=== PATIENT | female | born 1975 | race Two or more races ===

== ENCOUNTER 2023-12-30 21:47 | Inpatient (IN) | payer MEDICARE, OTHER ==
[~2023-12-30] VITALS: Ht 162.6 cm; Wt 157.5 kg
[2023-12-31 00:35] VITALS: BP 127/69; TEMP 97.5; O2SAT 98
[2023-12-31] MEDS ORDERED: LORAZEPAM INJ 2 MG/ML VIAL IV PRN (03:30)
[2023-12-31] MEDS: IV NS 0.9% 1,000 ML BAG IV PRN (05:40)
[2023-12-31] MEDS ORDERED: DIPH25TA25 PO (08:31)
[2023-12-31] MEDS ORDERED: MULT-1094 PO (08:31)
[2023-12-31] MEDS ORDERED: BENZ1TAB7 PO (08:31)
[2023-12-31] MEDS ORDERED: CLON0.5T4 PO (08:31)
[2023-12-31] MEDS ORDERED: VIT1CAPS44 PO (08:31)
[2023-12-31] MEDS ORDERED: HALO10TA13 PO (08:31)
[2023-12-31] MEDS ORDERED: HALO5TAB PO (08:31)
[2023-12-31] MEDS ORDERED: CALC-953 PO (08:31)
[2023-12-31] MEDS ORDERED: BUPR-54 PO (08:31)
[2023-12-31] MEDS ORDERED: LEVO50TA PO (08:31)
[2023-12-31] MEDS ORDERED: CHOL100043 PO (08:31)
[2023-12-31] MEDS ORDERED: SIME80TA15 PO (08:31)
[2023-12-31] MEDS ORDERED: TIMO5DRO35 EACHEYE (08:31)
[2023-12-31] MEDS ORDERED: PANT40TA2 PO (08:31)
[2023-12-31] MEDS ORDERED: PYRI25TA4 PO (08:31)
[2023-12-31] MEDS ORDERED: ASCO-340 PO (08:31)
[2023-12-31] MEDS ORDERED: IBUP-1957 PO (08:31)
[2023-12-31] MEDS ORDERED: LACT30003 PO (08:31)
[2023-12-31] MEDS ORDERED: [UNRECOGNIZED DRUG - OTHER] PO (08:31)
[2023-12-31] MEDS ORDERED: LATA7.5D EACHEYE (08:31)
[2023-12-31] MEDS ORDERED: OXYC-133 PO (08:32)
[2023-12-31] MEDS ORDERED: POLY17PO4 PO (08:32)
[2023-12-31] MEDS: SODIUM CHLORIDE 1000 MG TABLET PO SCH ×2 (08:34→16:30)
[2023-12-31 09:53] LABS: CREATININE 0.7 mg/dL (0.6-1.3); MAGNESIUM 2.4 mg/dL (1.8-2.4); PHOSPHORUS 3.9 mg/dL (2.5-4.9); POTASSIUM 4.3 mmol/L (3.5-5.1)
[2023-12-31 10:10] VITALS: BP 141/66; TEMP 98.1; O2SAT 96
[2023-12-31] MEDS: HYDROCODONE/APAP 10/325MG TABLET PO PRN (15:17)
[2023-12-31 16:00] VITALS: BP 133/68; TEMP 97.3; O2SAT 95
[2023-12-31 19:19] LABS: BASOPHILS # (AUTO) 0.1 K/uL (0.0-0.2); BASOPHILS % (AUTO) 0.8 % (0.0-2.0); EOSINOPHILS # (AUTO) 2.2 K/uL (0.0-0.7); EOSINOPHILS % (AUTO) 20.5 % (0.0-6.0); HEMATOCRIT 35 % (33-45); HEMOGLOBIN 11.7 g/dL (11.5-14.8); LYMPHOCYTES # (AUTO) 0.6 K/uL (0.8-4.8); LYMPHOCYTES % (AUTO) 5.8 % (20.0-44.0); MEAN CORPUSCULAR HEMOGLOBIN 31 PG (26.0-33.0); MEAN CORPUSCULAR HGB CONC 34 g/dl (31.0-36.0); MEAN CORPUSCULAR VOLUME 92 fL (82-100); MONOCYTES # (AUTO) 0.1 K/uL (0.1-1.30); MONOCYTES % (AUTO) 1.1 % (2.0-12.0); NEUTROPHILS # (AUTO) 7.6 K/uL (1.8-8.9); NEUTROPHILS % (AUTO) 71.8 % (43.0-81.0); PLATELET COUNT (AUTO) 273 K/uL (150-450); RED BLOOD CELL COUNT(AUTO) 3.75 MIL/uL (4.0-5.2); RED CELL DISTRIBUTION WIDTH 13.7 % (11.5-15.0); WHITE BLOOD COUNT (AUTO) 10.6 K/uL (4.3-11.0)
[2023-12-31 19:38] LABS: IRON, SERUM 29 ug/dl (50-175); TOTAL IRON BINDING CAPACITY 261 ug/dl (250-450)
[2023-12-31 19:46] LABS: PREGNANCY TEST URINE QUAL NEGATIVE (NEGATIVE)
[2023-12-31 20:00] VITALS: BP 113/67; TEMP 98.2; O2SAT 98
[2023-12-31 20:54] LABS: ANISOCYTOSIS 1+; BAND % (MANUAL) 2 % (0.0-5.0); EOSINOPHILS % (MANUAL) 2 % (0-4); LYMPHOCYTES % (MANUAL) 32 % (16-48); MONOCYTES % (MANUAL) 7 % (0-11.0); NEUTROPHILS % (MANUAL) 57 (42-76); PLATELET ESTIMATE ADEQUATE
[2023-12-31] MEDS ORDERED: MAG HYDROX/AL HYDROX/SIMETH 30 ML UDC PO PRN (21:30)
[2023-12-31] MEDS ORDERED: MAGNESIUM HYDROXIDE 30 ML UDC PO PRN (21:30)
[2023-12-31] MEDS ORDERED: POLYETHYLENE GLYCOL 3350 17 GM POWD.PACK PO PRN (21:30)
[2023-12-31] MEDS ORDERED: ZOLPIDEM TARTRATE 5 MG TABLET PO PRN (21:30)
[2023-12-31] MEDS ORDERED: ONDANSETRON HCL/PF 4 MG/2 ML VIAL IVP PRN (21:30)
[2023-12-31] MEDS ORDERED: ACETAMINOPHEN 325 MG TABLET PO PRN (21:30)
[2023-12-31 22:03] VITALS: BP 113/67; TEMP 98.2; O2SAT 98
[2023-12-31] MEDS: BUPROPION XL 150 MG TAB.ER.24 PO SCH (22:10)
[2023-12-31] MEDS: clonazePAM 0.5 MG TABLET PO SCH (22:10)
[2023-12-31] MEDS: diphenhydrAMINE HCL 50 MG CAPSULE PO SCH (23:57)
[2023-12-31] MEDS: HALOPERIDOL 5 MG TABLET PO SCH (23:57)
[2024-01-01] VITALS (7 sets, daily range): BP systolic 104–123; BP diastolic 53–94; TEMP 97.5–98.4; O2SAT 94–100
[2024-01-01 07:51] LABS: BASOPHILS # (AUTO) 0.1 K/uL (0.0-0.2); BASOPHILS % (AUTO) 1.1 % (0.0-2.0); EOSINOPHILS # (AUTO) 0.2 K/uL (0.0-0.7); EOSINOPHILS % (AUTO) 2.6 % (0.0-6.0); HEMATOCRIT 35 % (33-45); HEMOGLOBIN 11.7 g/dL (11.5-14.8); LYMPHOCYTES % (AUTO) 21.7 % (20.0-44.0); MEAN CORPUSCULAR HEMOGLOBIN 32 PG (26.0-33.0); MEAN CORPUSCULAR HGB CONC 34 g/dl (31.0-36.0); MEAN CORPUSCULAR VOLUME 96 fL (82-100); MONOCYTES % (AUTO) 10.6 % (2.0-12.0); NEUTROPHILS # (AUTO) 5.8 K/uL (1.8-8.9); PLATELET COUNT (AUTO) 281 K/uL (150-450); RED BLOOD CELL COUNT(AUTO) 3.62 MIL/uL (4.0-5.2); RED CELL DISTRIBUTION WIDTH 13.8 % (11.5-15.0); WHITE BLOOD COUNT (AUTO) 9.1 K/uL (4.3-11.0)
[2024-01-01] MEDS: ASCORBIC ACID 500 MG TABLET PO SCH (08:25)
[2024-01-01] MEDS: LEVOTHYROXINE SODIUM 50 MCG TABLET PO SCH (08:25)
[2024-01-01] MEDS: PYRIDOXINE HCL 50 MG TABLET PO SCH (08:25)
[2024-01-01] MEDS: BENZTROPINE MESYLATE (1 MG) 1 MG TABLET PO SCH (08:26)
[2024-01-01] MEDS: PANTOPRAZOLE 40 MG TABLET.DR PO SCH (08:26)
[2024-01-01] MEDS: CALCIUM CARB 600MG /VIT D 1 EACH TABLET PO SCH (08:26)
[2024-01-01] MEDS: SIMETHICONE 80 MG TAB.CHEW PO SCH (08:26)
[2024-01-01] MEDS: MULTIVITAMINS,THERAGRAN 1 UDTAB TABLET PO SCH (08:26)
[2024-01-01] MEDS: TIMOLOL 0.5% SOLN OPHTH 5 ML BOTTLE EACHEYE SCH (08:27)
[2024-01-01] MEDS: LATANOPROST EYE DROP 0.005% 2.5 ML BOTTLE EACHEYE SCH (08:28)
[2024-01-01] MEDS: CHOLECALCIFEROL 1,000 UNIT TABLET (VIT D3) PO SCH (08:28)
[2024-01-01] MEDS: Z GUARD REMEDY 4 OZ OINT TP PRN (08:29)
[2024-01-01 08:30] LABS: CALCIUM, SERUM 9.1 mg/dL (8.5-10.1); CREATININE 0.6 mg/dL (0.6-1.3); MAGNESIUM 2.2 mg/dL (1.8-2.4); PHOSPHORUS 5.7 mg/dL (2.5-4.9); POTASSIUM 4.5 mmol/L (3.5-5.1)
[2024-01-01] MEDS ORDERED: Medication Not On Formulary EA (Vit C/E/Zn/Coppr/Lutein/Zeaxan (Preservision Areds 2 Sof PO SCH (09:00)
[2024-01-01] MEDS ORDERED: LACTASE 9000 UNIT PO SCH (09:00)
[2024-01-01] MEDS: GUAIFENESIN/D-METHORPHAN HB 5 ML UDC PO PRN (13:49)
[2024-01-02] VITALS: BP 134/63; TEMP 98.2; O2SAT 96
[2024-01-02 07:00] VITALS: BP 123/74; TEMP 97.5; O2SAT 99
[2024-01-02 12:00] VITALS: BP 121/77; TEMP 97.7; O2SAT 99
[2024-01-02] MEDS: HYDROCODONE/APAP 5/325MG TABLET PO PRN (12:59)
[2024-01-02 16:00] VITALS: BP 126/59; TEMP 97.6; O2SAT 96
[2024-01-02 22:17] VITALS: BP 127/55; TEMP 98.8; O2SAT 96
[2024-01-03 01:59] VITALS: BP 114/57; TEMP 98.8; O2SAT 95
[2024-01-03 04:11] VITALS: BP 151/78; TEMP 97.7; O2SAT 95
[2024-01-03 08:00] VITALS: BP 148/88; TEMP 98.3; O2SAT 98
[2024-01-03] MEDS: SODIUM CHLORIDE 1000 MG TABLET PO SCH (09:13)
[2024-01-03 09:37] LABS: BASOPHILS # (AUTO) 0.5 K/uL (0.0-0.2); EOSINOPHILS # (AUTO) 0.4 K/uL (0.0-0.7); EOSINOPHILS % (AUTO) 4.5 % (0.0-6.0); HEMATOCRIT 39 % (33-45); HEMOGLOBIN 13.1 g/dL (11.5-14.8); LYMPHOCYTES # (AUTO) 1.8 K/uL (0.8-4.8); LYMPHOCYTES % (AUTO) 21.6 % (20.0-44.0); MEAN CORPUSCULAR HEMOGLOBIN 33 PG (26.0-33.0); MEAN CORPUSCULAR HGB CONC 34 g/dl (31.0-36.0); MEAN CORPUSCULAR VOLUME 96 fL (82-100); MONOCYTES # (AUTO) 0.5 K/uL (0.1-1.30); MONOCYTES % (AUTO) 5.6 % (2.0-12.0); NEUTROPHILS # (AUTO) 5.2 K/uL (1.8-8.9); NEUTROPHILS % (AUTO) 62.1 % (43.0-81.0); PLATELET COUNT (AUTO) 410 K/uL (150-450); RED BLOOD CELL COUNT(AUTO) 4.01 MIL/uL (4.0-5.2); RED CELL DISTRIBUTION WIDTH 13.9 % (11.5-15.0); WHITE BLOOD COUNT (AUTO) 8.4 K/uL (4.3-11.0)
[2024-01-03 09:39] LABS: BASOPHILS % (AUTO) 6.2 % (0.0-2.0)
[2024-01-03 10:10] LABS: CALCIUM, SERUM 9.2 mg/dL (8.5-10.1); CREATININE 0.7 mg/dL (0.6-1.3); MAGNESIUM 2.2 mg/dL (1.8-2.4); PHOSPHORUS 3.9 mg/dL (2.5-4.9); POTASSIUM 4.5 mmol/L (3.5-5.1)
[2024-01-03 18:00] VITALS: TEMP 98.3
[2024-01-03 20:00] VITALS: BP 133/74; TEMP 98.2; O2SAT 93; O2SAT 95
[2024-01-03 23:16] VITALS: O2SAT 99
[2024-01-04] VITALS: BP 116/75; TEMP 98.1; O2SAT 96
[2024-01-04 04:00] VITALS: BP 126/78; TEMP 98.2; O2SAT 93
[2024-01-04 08:00] VITALS: BP 150/92; TEMP 97.8; O2SAT 92
== END 2024-01-04 15:00 | DRG 193 ==
LOC: TELE 12-31 00:41
PROVIDERS: ADMIT Internal Medicine; ATTEND Internal Medicine
DX: J18.1 Lobar pneumonia, unspecified organism (principal); G93.41 Metabolic encephalopathy; E22.2 Syndrome of inappropriate secretion of antidiuretic hormone; Z68.43 Body mass index [BMI] 50.0-59.9, adult; H40.9 Unspecified glaucoma; K21.9 Gastro-esophageal reflux disease without esophagitis; F25.9 Schizoaffective disorder, unspecified; D50.9 Iron deficiency anemia, unspecified; F60.3 Borderline personality disorder; G89.29 Other chronic pain; E66.01 Morbid (severe) obesity due to excess calories; E03.9 Hypothyroidism, unspecified; K29.70 Gastritis, unspecified, without bleeding; Z98.890 Other specified postprocedural states; Z79.890 Hormone replacement therapy; Z79.899 Other long term (current) drug therapy; W19.XXXA Unspecified fall, initial encounter; Y92.9 Unspecified place or not applicable; Z79.891 Long term (current) use of opiate analgesic; F41.9 Anxiety disorder, unspecified; R27.0 Ataxia, unspecified
CPT/HCPCS: 36415; 80048-TC; 80061-TC; 83540-TC; 83735-TC; 84100-TC; 84484-TC; 84703-TC; 85025-TC; 97110-TC; 97116-TC; 97530-TC; A4223; G0378; J7030; Q0163